=== PATIENT | male | born 1985 | race Caucasian/White ===

== ENCOUNTER 2016-11-29 09:40 | Emergency (ER) | payer MEDICAID ==
[~2016-11-29] VITALS: Wt 70.0 kg
[~2016-11-29 09:40] MED LIST: ACET500T98 PO; AUG875 PO; AZIT250T94 PO; CARB15DR48 LEFT EAR; CPRHC10OT LEFT EAR; IBUP-1542 PO; IBUP200C PO; LORA10TA3 PO; NPH10OT LEFT EAR; PRED20TA PO; UDROBDM PO
[2016-11-29] MEDS ORDERED: LIDOCAINE 1% (MDV) 20 ML INJ SC ONE (10:00)
[2016-11-29] MEDS ORDERED: IBUP-1542 PO (10:31)
--- NOTE | 2016-11-29 13:23 | ERD ---
DATE OF SERVICE: 11/29/2016 HISTORY OF PRESENT ILLNESS: The patient is a 31-year-old male coming in complaining of a laceration to his left lower leg. Patient states he tripped and fell on a piece of metal at a construction si te earlier today. He is up to date on tetanus, received it 3 months ago. He denies any weakness to his extremity. No active bleeding. He does not feel that there are any foreign bodies within the region. PAST MEDICAL HISTORY: Denies medical problems. ALLERGIES: AMOXICILLIN. SURGICAL HISTORY: Denies. SOCIAL HISTORY: Denies. REVIEW OF SYSTEMS: A 12-point review of systems was done. Refer to HPI for positives, all other sy stems negative. PHYSICAL EXAMINATION VITAL SIGNS: Temperature 98, pulse 95, blood pressure is 129/73, respiratory rate 20, O2 saturation 98% on room air. Pain intensity is 6/10. GENERAL: The patient is well-appearing, well-nourished, no acute distress. HEENT: Atraumatic. Conjunctivae are pink. Pupils equal, round, and reactive to light. There is no s cleral icterus. Tympanic membranes clear bilaterally. Oropharynx clear. No nystagmus or photophobia . CHEST: Clear to auscultation bilaterally. There are no rales, wheezes or rhonchi. HEART: Regular rate and rhythm. No murmurs, clicks, rubs or gallops. No S3 or S4. EXTREMITIES: Equal pulses bilaterally. There is no peripheral clubbing, cyanosis or edema. No focal swelling or erythema. Full range of motion. Grossly neurovascularly intact. SKIN: There is a 3 cm linear laceration noted to the left mid-velasco. No surrounding erythema. No f oreign bodies. DIAGNOSIS: Laceration. EMERGENCY ROOM COURSE: The site was cleaned with copious amounts of normal saline. Site was numbed with plain lidocaine and three 4-0 Prolene simple interrupted sutures were placed. Edges were well approximated. Site was re-cleaned and bandages applied. MEDICAL DECISION MAKING: I have low suspicion for tendon or ligament injury; low suspicion for carmen ined foreign body. No indication for tetanus shot and low suspicion for vascular injury. DISCHARGE: The patient is discharged stable. Patient given prescription for ibuprofen and told to clean site with soap and water. Patient was recommended to return in 2 days for wound check. Patie nt was told if symptoms progress or worsen or if signs of infection develop, to return to the ER ildefonso ner. Patient was told sutures come out in 7 days. All other questions answered at time of discharg e. Discharge summary given at the time of departure. Patient understood and complied with plan. Dictated By: ALEKS NELSON for KIRSTY PRESLEY/PRASHANTH Conf#: [id number] DID#: [id number]
== END 2016-11-29 11:28 | disposition home or self-care (01) ==
LOC: FTE 09:40
DX: S81.812A Laceration without foreign body, left lower leg, initial encounter (principal); W01.118A Fall on same level from slipping, tripping and stumbling with subsequent striking against other sharp object, initial encounter; Y92.69 Other specified industrial and construction area as the place of occurrence of the external cause
CPT/HCPCS: 12002; Z7502; Z7610

== ENCOUNTER 2016-12-08 10:17 | Emergency (ER) | payer MEDICAID ==
[~2016-12-08] VITALS: Ht 172.7 cm; Wt 78.0 kg
[2016-12-08 10:35] VITALS: Ht 172.7 cm; Wt 78.0 kg
--- NOTE | 2016-12-08 11:03 | ERD ---
ER Documentation Chief Complaint Date/Time DATE: 12/08/16 Chief Complaint Encounter for suture removal HPI The patient is a 31-year-old male who presents the Emergency Department for suture removal. The patient reports that he on 11/29/2016 he accidentally tripped over a piece of metal at a construction site, sustaining a laceration to his left lower leg. He was seen in the Emergency Department and laceration repair was performed. The patient denies any pain to the site of the wound. Denies any surrounding erythema, warmth, swelling, tenderness. Denies any bleeding or drainage from the site. Denies fevers or chills. Denies nausea or vomiting. Denies numbness, paresthesias or weakness to the extremity. ROS All systems reviewed and are negative except as per history of present illness. Medications Home Meds Active Scripts Ibuprofen* (Motrin*) 600 Mg Tab, 600 MG PO Q6, #30 TAB Prov:GIANNI TUCKER PA-C 11/29/16 Azithromycin* (Zithromax*) 250 Mg Tablet, 250 MG PO .ZPACK DIRECTED, #6 TAB TAKE 500 MG (2 TABS) THE FIRST DAY THEN 250 MG (1 TAB) DAYS 2-5 Prov:MATT QUINTANILLA PA-C 09/07/16 Ibuprofen* (Ibuprofen*) 600 Mg Tablet, 600 MG PO Q6, #16 TAB Prov:TONIO CARRILLO MD 01/30/16 Ibuprofen* (Ibuprofen*) 200 Mg Capsule, 200 MG PO Q6 for PAIN, #30 CAP 0 Refills Prov:NANY ANNE PA-C 10/31/15 Acetaminophen (Tylenol) 500 Mg Tab, 500 MG PO Q6, #30 TAB 0 Refills Prov:NANY ANNE PA-C 10/31/15 Loratadine* (Loratadine*) 10 Mg Tablet, 10 MG PO DAILY, #30 TAB 0 Refills Prov:NANY ANNE PA-C 10/31/15 Guaifenesin-Dextromethorphan* (Robitussin* DM) 100MG/10MG/5ML Syrup, 5 ML PO Q6H Y for COUGH, #240 ML 0 Refills Prov:NANY ANNE PA-C 10/31/15 Carbamide Peroxide* (Debrox*) 6.5% - 15 Ml Drops, 10 DROP LEFT EAR BID, #1 BOTTLE 0 Refills Prov:NANY ANNE PA-C 10/31/15 Ibuprofen* (Ibuprofen*) 600 Mg Tablet, 600 MG PO Q6, #20 TAB Prov:MATT QUINTANILLA PA-C 04/15/15 Ciprofloxacin/Hydrocortisone* (Cipro* HC Otic) 10 Ml Drops, 3 DROP LEFT EAR TID , #1 BOTTLE Prov:MATT QUINTANILLA PA-C 04/15/15 Amoxicillin-Clavulanate K* (Augmentin*) 875 Mg Tab, 875 MG PO BID for 7 Days, TAB Prov:MATT QUINTANILLA PA-C 04/15/15 Neomycin/Polymyxin/Hydrocort* (Cortisporin* Otic) 10 Ml Susp, 4 DROP LEFT EAR QID for 7 Days, EA Prov:KAROL CHUNG NP 04/12/15 Prednisone* (Prednisone*) 20 Mg Tab, 50 MG PO DAILY for 3 Days, TAB Prov:ZACKARY CLARKE PA-C 03/26/15 Ibuprofen* (Motrin*) 600 Mg Tab, 600 MG PO Q6, #30 TAB Prov:ZACKARY CLARKE PA-C 03/26/15 Azithromycin* (Zithromax*) 250 Mg Tablet, 250 MG PO .ZPACK DIRECTED, #6 TAB TAKE 500 MG (2 TABS) THE FIRST DAY THEN 250 MG (1 TAB) DAYS 2-5 Prov:ZACKARY CLARKE PA-C 03/26/15 Allergies Allergies: Coded Allergies: amoxicillin (Unverified Allergy, Mild, 09/07/16) Uncoded Allergies: AMOXICILLIN (Allergy, Mild, 09/07/16) PMhx/Soc History of Surgery: No Anesthesia Reaction: No Hx Neurological Disorder: No Hx Respiratory Disorders: No Hx Cardiac Disorders: No Hx Psychiatric Problems: No Hx Miscellaneous Medical Probl: No Hx Alcohol Use: No Hx Substance Use: No Hx Tobacco Use: No Physical Exam Vitals Vital Signs Date Time Temp Pulse Resp B/P Pulse Ox O2 Delivery O2 Flow Rate FiO2 12/08/16 11:12 98.5 88 20 109/65 98 Room Air 12/08/16 10:35 98.7 89 16 124/69 95 Physical Exam Const: Well-developed, well-nourished, in no acute distress. Head: Atraumatic Eyes: Normal Conjunctiva ENT: Normal External Ears, Nose and Mouth. Neck: Supple. Full range of motion. Resp: Clear to auscultation bilaterally Cardio: Regular rate and rhythm, no murmurs Skin: Well-healed, well-approximated 3 cm laceration with three overlying sutures to the left lower extremity. No wound dehiscence. No drainage or bleeding. No warmth, swelling, erythema or tenderness to palpation. Ext: No clubbing, cyanosis, or edema. Moving all extremities. Neur: Awake and alert Psych: Normal Mood and Affect Procedures/MDM PROCEDURE NOTE: Suture Removal PROCEDURE: Removal of previously placed sutures DESCRIPTION OF REPAIR: The wound demonstrates no evidence of infection with adequate tensile strength at the wound margins at this time to warrant suture removal. Sutures were removed individually using scissors and forceps, with a total of 3 sutures removed. Re-examination of the wound following the procedure reveals no evidence of any retained foreign bodies and no dehiscence. The patient tolerated the procedure well without complications. Standard post- procedure care was explained and return precautions were given. MEDICAL DECISION MAKING: This is a 31-year-old male presenting to the Emergency Department for for removal of previously placed sutures to his lower leg. The patient had no significant acute abnormalities on physical examination, and vital signs were stable. He had good wound closure and good wound approximation , with no evidence of dehiscence. The wound is clean, dry and intact with no evidence of purulent drainage, bleeding or infection. Sutures were removed with no present complications. At this time, the patient is in stable condition and therefore can be discharged home with strict return precautions for signs of deteriorating or worsening condition, the development of any neurovascular deficits, erythema, drainage, infection, fevers, or any other concerning symptoms. The patient is instructed to follow up with their primary care provider for reevaluation and further management within 2 to 3 days, or to return to the ER sooner for any new or worsening symptoms. I shared my medical decision making and plan with the patient and they verbally understand and agree with the plan for further observation and care as an outpatient. At the time of discharge all questions were answered. Departure Diagnosis: Primary Impression: Encounter for removal of sutures Condition: Stable Patient Instructions: Suture Removal, No Complication Additional Instructions: Call your primary care doctor TOMORROW for an appointment during the next 2-3 days.See the doctor sooner or return here if your condition worsens before your appointment time. ANT BONILLA PA-C 3, 2017 11:03
[2016-12-08 11:12] VITALS: BP 109/65; PULSE 88; RESP 20; TEMP 98.5
== END 2016-12-08 11:13 | disposition home or self-care (01) ==
LOC: FTE 10:17
DX: Z48.02 Encounter for removal of sutures (principal)
CPT/HCPCS: 99281

== ENCOUNTER 2017-03-25 22:27 | Emergency (ER) | payer MEDICAID ==
[~2017-03-25] VITALS: Ht 167.6 cm; Wt 80.0 kg
[~2017-03-25 22:27] MED LIST changes: -CARB15DR48 LEFT EAR; +CARB15DR50 LEFT EAR
[2017-03-25 22:36] VITALS: Ht 167.6 cm; Wt 80.0 kg
[2017-03-26] MEDS ORDERED: traMADol 50 MG TAB PO ONE
--- NOTE | 2017-03-26 00:24 | RADRPT ---
PROCEDURE: XR Knee. CLINICAL INDICATION: Anterior left knee pain for 2 weeks TECHNIQUE: AP, lateral and oblique views of the left knee were obtained. COMPARISON: None. FINDINGS: No fracture or osseous lesion is identified. There is no evidence for dislocation. Mineralization is within normal limits. Joint spaces are preserved. No evidence of effusion or soft tissue swelli ng is identified. RPTAT:HJJR IMPRESSION: Unremarkable left knee series. Physician Jalen Date Time Electronically viewed and signed by Kendall Pinon Physician on 03/26/2017 00:24 JR/
[2017-03-26] MEDS ORDERED: HYDR-906 PO (00:29)
[2017-03-26] MEDS ORDERED: IBUP-1542 PO (00:29)
[2017-03-26] MEDS ORDERED: HYDROCODONE/APAP (5/325) TAB PO ONE (00:30)
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
[2017-03-26 01:35] VITALS: BP 119/68; PULSE 61; RESP 16
== END 2017-03-26 01:40 | disposition home or self-care (01) ==
LOC: FTE 22:27
DX: M25.562 Pain in left knee (principal)
CPT/HCPCS: 73562; Z7610

== ENCOUNTER 2017-05-16 22:38 | Emergency (ER) | END 2017-05-17 01:10 | disposition home or self-care (01) | DX: J20.9 Acute bronchitis, unspecified (principal) | CPT/HCPCS: 36415; 71010; 84484; 93005; Z7502 ==

== ENCOUNTER 2018-08-26 13:37 | Emergency (ER) | END 2018-08-26 16:10 | disposition home or self-care (01) ==

== ENCOUNTER 2018-10-31 13:27 | Emergency (ER) | payer MEDICAID ==
[~2018-10-31] VITALS: Wt 82.3 kg
[~2018-10-31 13:27] MED LIST changes: -ACET500T98 PO; -AUG875 PO; -AZIT250T94 PO; -CARB15DR50 LEFT EAR; -CPRHC10OT LEFT EAR; -IBUP200C PO; -LORA10TA3 PO; -NPH10OT LEFT EAR; -PRED20TA PO; -UDROBDM PO
[2018-10-31 13:33] VITALS: BP 112/65; PULSE 103; RESP 22
[2018-10-31] MEDS ORDERED: CEPHALEXIN 500 MG CAP PO ONE (16:30)
[2018-10-31] MEDS ORDERED: FLUORESCEIN STRIP LEFT EYE ONE (16:30)
[2018-10-31] MEDS ORDERED: CEPH-443 PO (16:53)
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
== END 2018-10-31 17:08 | disposition home or self-care (01) ==
LOC: FTE 13:27
DX: H57.12 Ocular pain, left eye (principal); R40.2412 Glasgow coma scale score 13-15, at arrival to emergency department
CPT/HCPCS: Z7502; Z7610; 99283

== ENCOUNTER 2018-11-02 08:56 | Emergency (ER) | payer MEDICAID ==
[~2018-11-02] VITALS: Wt 78.8 kg
[~2018-11-02 08:56] MED LIST changes: +CEPH-443 PO
[2018-11-02 08:57] VITALS: BP 142/84; PULSE 81; RESP 18
[2018-11-02] MEDS ORDERED: GENT5DRO28 LEFT EYE (09:24)
[2018-11-02] MEDS ORDERED: SULF1TAB31 PO (09:24)
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
== END 2018-11-02 09:48 | disposition home or self-care (01) ==
LOC: FTE 08:56
DX: H00.014 Hordeolum externum left upper eyelid (principal)
CPT/HCPCS: 99283

== ENCOUNTER 2019-02-02 15:59 | Emergency (ER) | payer MEDICAID ==
[~2019-02-02] VITALS: Wt 79.5 kg
[~2019-02-02 15:59] MED LIST changes: +GENT5DRO28 LEFT EYE; +SULF1TAB31 PO
[2019-02-02 16:00] VITALS: BP 132/69; PULSE 73; RESP 20
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
[2019-02-02] MEDS ORDERED: ACET500C5 PO (17:34)
== END 2019-02-02 17:49 | disposition home or self-care (01) ==
LOC: FTE 15:59
DX: R30.0 Dysuria (principal)
CPT/HCPCS: 81003; 87086; 99283